=== PATIENT | male | born 1990 | race African-American/Black ===

== ENCOUNTER 2016-12-18 16:46 | Emergency (ER) | payer OTHER ==
[~2016-12-18] VITALS: Wt 167.8 kg
[~2016-12-18 16:46] MED LIST: AMLODIPINE BESY1 TAB PO; BENTYL10 MG PO; CARAFATE1 G1 PO; CARAFATE1 GM/10 ML PO; CETIRIZINE HYDR10 MG PO; CIPRO500 MG PO; DAYPRO600 M1 PO; FLAGYL500 MG PO; HYDROCODONE BIT1 T11 PO; HYDROCODONE BIT1 T20 PO; K-TAB ER8 MEQ PO; MOTRIN800 MG PO; NAPROSYN500 MG PO; NO HOME MEDICATIONS; NORCO 10-325 T1 EACH PO; NORVASC10 MG PO; NORVASC5 MG PO; OMNICEF300 MG PO; PHENERGAN25 MG R; PREDNICOT10 MG PO; PREDNISONE10 MG PO; PRILOSEC20 M1 PO; PROTONIX40 MG PO; REGLAN10 M1 PO; ROBAXIN750 MG PO; VICO75300 PO; ZITHROMAX Z PA250 MG PO; ZOFRAN ODT4 MG SL; ZOFRAN4 MG PO; Zofran4 MG PO
[2016-12-18 17:04] VITALS: BP 114/73
[2016-12-18] MEDS ORDERED: SUMATRIPTAN SUC50 M1 PO (17:05)
[2016-12-18] MEDS ORDERED: IBU800 M1 PO (17:05)
[2016-12-18] MEDS ORDERED: BACLOFEN20 M1 PO (17:06)
[2016-12-18] MEDS ORDERED: CEPHALEXIN500 M1 PO (18:03)
== END 2016-12-18 17:51 | disposition home or self-care (01) ==
LOC: ED 16:46
DX: S61.411A Laceration without foreign body of right hand, initial encounter (principal); Z91.018 Allergy to other foods; Z79.899 Other long term (current) drug therapy; W23.0XXA Caught, crushed, jammed, or pinched between moving objects, initial encounter; Y93.89 Activity, other specified; Y92.9 Unspecified place or not applicable; Y99.9 Unspecified external cause status

== ENCOUNTER 2016-12-28 14:41 | Emergency (ER) | payer OTHER ==
[~2016-12-28] VITALS: Ht 193 cm; Wt 172.4 kg
[~2016-12-28 14:41] MED LIST changes: +BACLOFEN20 M1 PO; +CEPHALEXIN500 M1 PO; +IBU800 M1 PO; +SUMATRIPTAN SUC50 M1 PO
[2016-12-28 14:53] VITALS: BP 155/95
[2016-12-28 15:27] LABS: BASO % 0.1 % (0.0-1.0); EOS % 0.1 % (1.0-4.0); HEMATOCRIT 40.3 % (42.0-52.0); HEMOGLOBIN 13.8 g/dl (14.0-18.0); IG # 0.1 10*3/uL (0.0-0.1); LYMPH # 3.1 10*3/uL (1.3-4.4); LYMPH % 20.7 % (27.0-41.0); MEAN CELL VOLUME 85.4 fl (80.0-94.0); MEAN CORPUSCULAR HGB 29.2 pg (27.0-31.0); MEAN CORPUSCULAR HGB CONC 34.2 g/dl (33.0-37.0); MEAN PLATELET VOLUME 10.2 fl (9.6-12.3); MONO % 7.1 % (3.0-9.0); NEUT # 10.5 10*3/uL (2.3-7.9); NEUT % 71.6 % (47.0-73.0); PLATELET COUNT AUTOMATED 239 10*3/uL (130-400); RED BLOOD COUNT 4.72 10*6/uL (4.50-5.90); WHITE BLOOD COUNT 14.7 10*3/uL (4.8-10.8)
[2016-12-28 15:41] LABS: ALBUMIN 3.6 gm/dl (3.1-4.5); ALKALINE PHOSPHATASE 55 U/L (45-117); BUN 8 mg/dl (7-24); CARBON DIOXIDE 27 mmol/L (21-32); CHLORIDE 107 mmol/L (98-107); EST GLOM FILT AFRICAN AMERICAN > 60 ml/min; GLUCOSE 90 mg/dL (65-99); POTASSIUM 3.5 mmol/L (3.5-5.1); SGOT/AST 9 IU/L (3-35); SGPT/ALT 22 U/L (12-78); SODIUM 143 mmol/L (136-145); TOTAL PROTEIN 7.7 gm/dL (6.4-8.2)
== END 2016-12-28 17:40 | disposition home or self-care (01) ==
LOC: ED 14:41
PROVIDERS: Registered Nurse
DX: Z48.00 Encounter for change or removal of nonsurgical wound dressing (principal); R10.13 Epigastric pain; Z91.018 Allergy to other foods; Z79.899 Other long term (current) drug therapy

== ENCOUNTER → 2017-01-12 | Day surgery (SDC) | payer OTHER ==
[2017-01-11 12:25] LABS: BASO % 0.2 % (0.0-1.0); EOS # 0.3 10*3/uL (0.0-0.4); EOS % 3.4 % (1.0-4.0); HEMATOCRIT 38.9 % (42.0-52.0); HEMOGLOBIN 12.9 g/dl (14.0-18.0); LYMPH # 3.7 10*3/uL (1.3-4.4); LYMPH % 41.4 % (27.0-41.0); MEAN CELL VOLUME 88.4 fl (80.0-94.0); MEAN CORPUSCULAR HGB 29.3 pg (27.0-31.0); MEAN CORPUSCULAR HGB CONC 33.2 g/dl (33.0-37.0); MEAN PLATELET VOLUME 10.2 fl (9.6-12.3); MONO # 0.6 10*3/uL (0.1-1.0); MONO % 7.1 % (3.0-9.0); NEUT # 4.3 10*3/uL (2.3-7.9); NEUT % 47.6 % (47.0-73.0); PLATELET COUNT AUTOMATED 251 10*3/uL (130-400); RED CELL DISTRI WIDTH 13.3 % (0-14.5)
[2017-01-11 12:41] LABS: ALBUMIN 3.7 gm/dl (3.1-4.5); ALKALINE PHOSPHATASE 56 U/L (45-117); BILIRUBIN, DIRECT 0.2 mg/dL (0.0-0.2); BILIRUBIN, TOTAL 0.7 mg/dl (0.2-1.0); BUN 7 mg/dl (7-24); CARBON DIOXIDE 30 mmol/L (21-32); CHLORIDE 107 mmol/L (98-107); EST GLOM FILT AFRICAN AMERICAN > 60 ml/min; GLUCOSE 90 mg/dL (65-99); POTASSIUM 3.5 mmol/L (3.5-5.1); SGOT/AST 11 IU/L (3-35); SGPT/ALT 18 U/L (12-78); SODIUM 142 mmol/L (136-145); TOTAL PROTEIN 7.3 gm/dL (6.4-8.2)
[2017-01-11 12:59] LABS: PROTHROMBIN TIME 10.5 SECONDS (9.0-12.4)
[~2017-01-12] VITALS: Ht 193 cm; Wt 167.8 kg
[~2017-01-12] MED LIST changes: +IMITREX PO
== END | disposition home or self-care (01) ==
LOC: SDC 01-06 09:30
PROVIDERS: Surgery
DX: K82.8 Other specified diseases of gallbladder (principal); Z53.8 Procedure and treatment not carried out for other reasons

== ENCOUNTER 2017-02-27 20:15 | Inpatient (IN) | payer OTHER ==
[~2017-02-27] VITALS: Ht 193 cm; Wt 155.6 kg
--- NOTE | ~2017-02-27 | O ---
[place], [place] OPERATIVE NOTE [facility]: [id number] UNIT #: [id number] ROOM: 512 DOCTOR: SAVANNAH PORTER,PILY BIRTHDATE: [birth year] DOS: 03/01/2017 GASTROENDOSCOPIC REPORT The patient has presented with chief complaint of epigastric abdominal pain, several visits to Emergency Room, and finally was admitted for definitive evaluation. We were concerned if there is any intragastric pathology of concern to define his complaints. PROCEDURE: Today's procedure part of investigation is panendoscopy plus biopsy. PREMEDICATIONS: Versed and Diprivan. SCOPE: Olympus forward-viewing gastroscope Q10 video. REPORT: After putting the patient in the left lateral position and after application of lubricant to the scope, the scope was introduced. Thereafter, under direct visualization, I advanced through the length of the esophagus without difficulty. A very small hiatal hernia approximately 1 cm was noticed. Gastric pouch was entered. Gastritis of mild degree seen. Duodenal bulb, second and third part within normal limits. Antral biopsy obtained for H. pylori. The patient extubated and tolerated the procedure well. IMPRESSION: A 1-cm hiatal hernia, small, gastritis of mild degree. PLAN AND DISCUSSION: I do not believe that his complaints are associated with gastric finding. His gallbladder shows some wall thickening and some pericholecystic fluid. Apparently, this patient has been previously scheduled for gallbladder surgery; however, he did not comply with the procedure and at the present time Dr. Islas of General Surgery is following up on him. Hopefully, he is going to have his cholecystectomy done to see if there is any contribution from his gallbladder pathology. PILY NUÑEZ MD CM:OPRECORD:OPERATIVE NOTE 1211 1658 PILY NUÑEZ MD 03/01/17 1658 interface
--- NOTE | ~2017-02-27 | DS ---
[place], [place] DISCHARGE SUMMARY NAME: RHONDA YARBROUGH [facility] #: [id number] UNIT #: [id number] ROOM: 512 DOCTOR: BRENDA ISRAEL MD BIRTHDATE: [birth year] DOS: 03/03/2017 HOSPITAL COURSE: The patient is 26-year-old. The patient presented to the Emergency Room with complaints of abdominal pain. Please refer to H and P dictated by Dr. Vaughan for further details. After admission the patient had a consultation with Dr. Islas for acute cholecystitis. A cholecystectomy was performed. The patient postoperatively continued to complain of pain. Dr. Sloan was consulted and the patient was ordered an endoscopy, which showed gastritis. Hepatitis panel has been negative. The patient is overall stable. Blood cultures have come back negative. He has been started on a diet and he has tolerated it, so the plan is to discharge him to home today. Follow up with his PCP as an outpatient. DISCHARGE MEDICATIONS: Omeprazole 20 daily, amlodipine 10 daily, Bentyl 10 t.i.d., metoclopramide 10 t.i.d., Zofran 4 mg q. 6 hours p.r.n. for nausea, Imitrex 50 mg daily p.r.n. for headache. BRENDA ISRAEL MD CM:DISCHARG 0915 [id number] BRENDA ISRAEL MD 03/03/17 1127 interface
--- NOTE | ~2017-02-27 | PR ---
[place], [place] PROGRESS NOTE NAME: [id number] UNIT #: [id number] ROOM: 512 DOCTOR: ИВАН PENA MD BIRTHDATE: [birth year] DOS: 03/02/2017 SUBJECTIVE: The patient is starting to feel better. Abdominal pain is improving. He still gets recurrent nausea after he eats, but no vomiting today. The patient says he is taking clear liquid diet. OBJECTIVE: VITAL SIGNS: Blood pressure 126/54, heart rate 65 beats per minute, breathing 20 times per minute, temperature 98.6 degrees Fahrenheit. GENERAL APPEARANCE: The patient is alert and oriented x 3, in no visible distress. HEENT AND NECK: Exam within normal limits. CARDIOVASCULAR SYSTEM: Heart rate is regular in rate and rhythm. S1 and S2 normally audible. LUNGS: Clear to auscultation. ABDOMEN: Soft, nontender. No obvious organomegaly. Bowel sounds are present. EXTREMITIES: Without significant cyanosis or edema. IMPRESSION: 1. Epigastric pains and nausea and vomiting. The patient is status post EGD by Dr. Sloan, showing a 1-cm hiatal hernia, small gastritis of mild degree, no major findings. 2. Musculoskeletal pains in epigastric area. I did start him on gabapentin. 3. Acute cholecystitis. The patient evaluated by Dr. Islas who has recommended outpatient followup with him. 4. Benign essential hypertension with controlled blood pressures. 5. Hypokalemia. The patient given extra potassium. I will repeat his potassium level. Apparently, this was secondary to vomiting. 6. Suspicion of drug withdrawal, possibly opioids for which I have put him on a angiographer because the patient appeared very restless and was complaining of recurrent vomiting and feeling sick. The patient denies any drug abuse other than marijuana, but the patient may have actually undergone opioid withdrawal, but is starting to feel better now. I am unable to confirm this because no drug screens were done at the time of admission in the ER and the patient is giving no history of drug abuse. [place], [place] PROGRESS NOTE NAME: [facility]: [id number] UNIT #: [id number] ROOM: 512 DOCTOR: ИВАН PENA MD BIRTHDATE: [birth year] ИВАН PENA MD CM:MAYCO [phone] ИВАН PENA MD 03/03/17 0159 interface
--- NOTE | ~2017-02-27 | PR ---
[place], [place] PROGRESS NOTE NAME: RHONDA YARBROUGH [facility] #: [id number] UNIT #: [id number] ROOM: 512 DOCTOR: ИВАН PENA MD BIRTHDATE: [birth year] DOS: 03/01/2017 SUBJECTIVE: The patient is still complaining of epigastric and lower sternal pain with tenderness, recurrent nausea. OBJECTIVE: GENERAL APPEARANCE: The patient is alert and oriented x 3, in no visible distress. VITAL SIGNS: Blood pressure 124/61, heart rate of 54 beats per minute, breathing 20 times per minute, temperature 98.8 degrees Fahrenheit. HEENT AND NECK: Exam within normal limits. CARDIOVASCULAR SYSTEM: Heart rate is regular in rate and rhythm. S1 and S2 normally audible. LUNGS: Clear to auscultation. ABDOMEN: Tenderness over the lower sternum and epigastric area. No rigidity, guarding or rebound tenderness. Obesity. No obvious organomegaly. Bowel sounds are present. EXTREMITIES: Without significant cyanosis or edema. IMPRESSION: 1. Persisting epigastric pains; at least in the lower sternal area, they appeared to be musculoskeletal; then he had some epigastric tenderness. The patient going for further evaluation with an EGD by Dr. Sloan later today. I will keep the patient on omeprazole. 2. Musculoskeletal pains. I will start the patient on gabapentin to see if it helps. 3. Acute cholecystitis, being followed by Dr. Islas, who is suggesting an outpatient cholecystectomy. Ultrasound of the gallbladder showed thickening of the gallbladder wall. 4. Benign essential hypertension with controlled blood pressures. 5. Hypokalemia, to be treated with extra potassium supplements. No liver enzyme elevation. ИВАН PENA MD CM:PNTRANS [phone] ИВАН PENA MD 03/02/17 0002 interface
--- NOTE | ~2017-02-27 | WRIGHTHP ---
[place], [place] PATIENT HISTORY AND PHYSICAL EXAM NAME: RHONDA YARBROUGH [facility] #: [id number] UNIT #: [id number] ROOM: 512 DOCTOR: ИВАН PENA MD BIRTHDATE: [birth year] DOS: 02/28/2017 HISTORY OF PRESENT ILLNESS: A 26-year-old gentleman with a past medical history of: 1. Chronic epigastric pain accompanied by nausea, vomiting off and on for about 2 years. 2. Chronic back pains. 3. Hypertension. 4. History of marijuana abuse. 5. History of migraine headaches. 6. Obesity. The patient presented to the Emergency Department with epigastric abdominal pains for 2 days, getting worse along with nausea and vomiting. It was like a burning sensation, which he has had off and on episodes for the last 2 years. The patient had endoscopy at [facility] in 2014, which showed some gastritis only. REVIEW OF SYSTEMS: GASTROINTESTINAL: Just epigastric pains, which has happened off and on for the last 2 years along with nausea and vomiting. LUNGS: No wheezing or shortness of breath. CARDIOVASCULAR: No chest pains or palpitations. FAMILY HISTORY: Noncontributory. SOCIAL HISTORY: Some use of marijuana; otherwise, no alcohol, nicotine or drug abuse. HOME MEDICATIONS: Amlodipine, metoclopramide. ALLERGIES: No known drug allergies. PHYSICAL EXAMINATION: GENERAL: Alert and oriented x3, in no visible distress. HEENT AND NECK: Extraocular movements are intact. Sclerae are anicteric. Oral mucosa is moist and clean. No obvious facial weakness. Neck is supple without any lymphadenopathy. No thyromegaly. No JVD. No carotid arterial bruits. LUNGS: Clear to auscultation. No wheezing. No rhonchi. CARDIOVASCULAR SYSTEM: Heart rate is regular in rate and rhythm. S1 and S2 normally audible. No significant murmur or any other abnormal cardiac sounds. ABDOMEN: Obesity and some epigastric tenderness on palpation. EXTREMITIES: Without significant cyanosis or edema. Warm to touch. CENTRAL NERVOUS SYSTEM: Alert and oriented x3. Cranial nerves II-XII are intact. Speech is normal. The patient is able to move all extremities. Normal muscle strength. Deep tendon reflexes are equal on both sides. Plantars were downgoing. RADIOLOGY AND LABORATORY DATA: The patient's CT scan of the abdomen and pelvis showed slightly thickened gallbladder wall. White cell count 13,500, otherwise normal CBC. Normal serum electrolytes. [place], [place] PATIENT HISTORY AND PHYSICAL EXAM [facility]: [facility] [id number] UNIT #: [id number] ROOM: 512 DOCTOR: BECKY PORTER,ИВАН Enrique BIRTHDATE: [birth year] IMPRESSION AND PLAN: 1. The patient has epigastric pains from uncertain etiology. Has had endoscopy for similar pains in 2014, which only showed mild gastritis. I will consult Dr. Sloan for evaluation. 2. Suspected acute cholecystitis for which surgeon, Dr. Islas, was consulted who has ordered ultrasound of the abdomen. The results are still not available. 3. Benign essential hypertension, which is being treated and blood pressure is being monitored. 4. The patient is on IV ondansetron and Dilaudid for pain control and control of his nausea and vomiting. ИВАН PENA MD CM:HISPHYS:PATIENT HISTORY AND PHYSICAL EXAMINATION 172 14 ИВАН PENA MD 02/28/171914 interface
--- NOTE | ~2017-02-27 | PR ---
[place], [place] PROGRESS NOTE NAME: RHONDA YARBROUGH [facility] #: [id number] UNIT #: [id number] ROOM: 512 DOCTOR: BRENDA ISRAEL MD BIRTHDATE: [birth year] DOS: SUBJECTIVE: The patient is doing fine without any complaints. She has been requesting Dilaudid for abdominal pain. OBJECTIVE: VITAL SIGNS: Graphic trend shows a pressure 130/63, pulse 56, respirations 14, temperature 97.7. LUNGS: Clear. HEART: Regular. ABDOMEN: Soft. EXTREMITIES: Without any edema. LABORATORY DATA: Blood cultures show no bacterial growth. Endoscopy shows acute gastritis. ASSESSMENT AND PLAN: 1. Status post cholecystectomy for acute cholecystitis. 2. Continued abdominal pain with gastritis and hiatal hernia on EGD. The patient is stable and improved, started on a diet and she would be able to go home today. She is advised to follow up with PCP, Dr. Lafleur. BRENDA ISRAEL MD CM:PNTRANS 4 13 BRENDA ISRAEL MD 03/03/172112 interface
--- NOTE | ~2017-02-27 | CON ---
[place], [place] REPORT OF CONSULTATION NAME: RHONDA YARBROUGH [facility] #: [id number] UNIT #: [id number] ROOM: 512 DOCTOR: ALEKSANDAR NUÑEZ MDKELLGABRIELLE BIRTHDATE: [birth year] DOS: HISTORY OF PRESENT ILLNESS: A 26-year-old patient who has presented with chief complaint of persistent epigastric distress, multiple visits to Emergency Room. The patient previously has been scheduled for cholecystectomy. He has not complied with the outpatient followup. However, despite, he is telling me that he has had gastritis and he has had abdominal pain and he had to be admitted. He had a panel of blood work done including lactic acid which was normal. CBC: White blood cell of 13+, H and H of 15 and 45. Comprehensive metabolic panel: BUN and creatinine normal. Liver function test normal. C-reactive protein 0.7. CT scan of the abdomen, no acute pathology except gallbladder thickening and pericholecystic fluid as identified. Sonogram of the gallbladder again reconfirms about above finding. PAST MEDICAL HISTORY: Chronic pain complaints, hypertension. SOCIAL HISTORY: Cannabis user and nonsmoker, otherwise nonalcohol consumer. FAMILY HISTORY: Noncontributory. ALLERGIES: To strawberries. MEDICATIONS: List including Zofran, Imitrex, Reglan, Norvasc, Bentyl reviewed. REVIEW OF SYSTEMS: HEENT: Denies double vision, blurred vision. RESPIRATORY: Denies shortness of breath. CARDIOVASCULAR: Denies chest pain. DIGESTIVE SYSTEM: Epigastric abdominal pain. No hematemesis, no hematochezia. PHYSICAL EXAMINATION: VITAL SIGNS: Stable. HEENT: Head normocephalic, nontraumatic. Mouth and buccal mucosa benign. NECK: Supple, no thyromegaly. CHEST: Symmetric anatomy, equal expansion. No wheeze. No rhonchi. HEART: Normal sinus rhythm. No gallop, no murmur. ABDOMEN: Soft. No hepato or organomegaly. Bowel sounds present. No pulsatile mass. EXTREMITIES: No cyanosis, no pedal edema. NEUROLOGIC: Alert, oriented to time, place and person. INTEGUMENT: Numerous tattoos. IMPRESSION: Epigastric abdominal pain, ruling out intragastric pathology, i.e., hiatal hernia, gastritis, peptic ulcer disease, otherwise pericholecystic fluid with acalculous cholecystitis in differential diagnosis. The patient may benefit from cholecystectomy, otherwise, if his upper endoscopy would be unremarkable. Other adjunctive diagnoses, migraine cephalalgia, marijuana user, hypertension, chronic abdominal pain complaint with no other findings as explained regarding his gallbladder. [place], [place] REPORT OF CONSULTATION NAME: RHONDA YARBROUGH UNIT #: [id number] ROOM: 512 DOCTOR: PILY NUÑEZ MD BIRTHDATE: [birth year] PILY NUÑEZ MD CM:CONSTR:REPORT OF CONSULTATION 1215 03/02/17 0102 interface
[2017-02-27 20:47] VITALS: BP 135/72
[2017-02-27 21:16] LABS: BILIRUBIN NEGATIVE (NEGATIVE); BLOOD NEGATIVE (NEGATIVE); CLARITY CLEAR (CLEAR); COLOR YELLOW (YELLOW); GLUCOSE NEGATIVE (NEGATIVE); KETONE NEGATIVE (NEGATIVE); LEUKO ESTERASE NEGATIVE (NEGATIVE); NITRITE NEGATIVE (NEGATIVE); PH 6.5 (5.0-9.0); PROTEIN NEGATIVE (NEGATIVE); UROBILINOGEN 0.2 E.U./dl (0.2-1.0)
[2017-02-27 21:29] LABS: BACTERIA TRACE; EPITHELIAL CELLS 35-40; RBC 0-2 rbc/hpf (0-2); URINE REFLEX COMMENT NO (NO)
[2017-02-27 22:12] LABS: BASO % 0.2 % (0.0-1.0); EOS % 0.1 % (1.0-4.0); HEMOGLOBIN 15.2 g/dl (14.0-18.0); IG # 0.1 10*3/uL (0.0-0.1); LYMPH # 2.9 10*3/uL (1.3-4.4); LYMPH % 21.6 % (27.0-41.0); MEAN CELL VOLUME 85.4 fl (80.0-94.0); MEAN CORPUSCULAR HGB 29.5 pg (27.0-31.0); MEAN CORPUSCULAR HGB CONC 34.5 g/dl (33.0-37.0); MEAN PLATELET VOLUME 10.5 fl (9.6-12.3); MONO # 0.7 10*3/uL (0.1-1.0); MONO % 5.3 % (3.0-9.0); NEUT # 9.8 10*3/uL (2.3-7.9); NEUT % 72.4 % (47.0-73.0); PLATELET COUNT AUTOMATED 293 10*3/uL (130-400); RED BLOOD COUNT 5.15 10*6/uL (4.50-5.90); WHITE BLOOD COUNT 13.5 10*3/uL (4.8-10.8)
[2017-02-27 22:43] LABS: ALBUMIN 4.1 gm/dl (3.1-4.5); ALKALINE PHOSPHATASE 68 U/L (45-117); BILIRUBIN, TOTAL 1.2 mg/dl (0.2-1.0); BUN 5 mg/dl (7-24); CARBON DIOXIDE 27 mmol/L (21-32); CHLORIDE 107 mmol/L (98-107); EST GLOM FILT AFRICAN AMERICAN > 60 ml/min; GLUCOSE 87 mg/dL (65-99); POTASSIUM 3.8 mmol/L (3.5-5.1); SGOT/AST 21 IU/L (3-35); SGPT/ALT 26 U/L (12-78); SODIUM 143 mmol/L (136-145); TOTAL PROTEIN 8.4 gm/dL (6.4-8.2)
[2017-02-27 22:48] LABS: C-REACTIVE PROTEIN 0.71 MG/DL (0-0.3)
[2017-02-28 01:50] VITALS: BP 133/70
[2017-02-28 02:00] VITALS: BP 148/90
[2017-02-28 08:00] VITALS: BP 154/74
[2017-02-28 16:00] VITALS: BP 154/78
[2017-02-28 20:00] VITALS: BP 133/85
[2017-03-01] VITALS (8 sets, daily range): BP systolic 124–207; BP diastolic 61–116
[2017-03-01 07:32] LABS: BASO % 0.4 % (0.0-1.0); EOS # 0.2 10*3/uL (0.0-0.4); EOS % 1.4 % (1.0-4.0); HEMATOCRIT 37.3 % (42.0-52.0); HEMOGLOBIN 12.6 g/dl (14.0-18.0); LYMPH % 44.5 % (27.0-41.0); MEAN CELL VOLUME 87.1 fl (80.0-94.0); MEAN CORPUSCULAR HGB 29.4 pg (27.0-31.0); MEAN CORPUSCULAR HGB CONC 33.8 g/dl (33.0-37.0); MONO # 0.7 10*3/uL (0.1-1.0); MONO % 6.5 % (3.0-9.0); NEUT # 5.3 10*3/uL (2.3-7.9); NEUT % 46.9 % (47.0-73.0); PLATELET COUNT AUTOMATED 242 10*3/uL (130-400); RED BLOOD COUNT 4.28 10*6/uL (4.50-5.90); RED CELL DISTRI WIDTH 12.9 % (0-14.5); WHITE BLOOD COUNT 11.2 10*3/uL (4.8-10.8)
[2017-03-01 07:42] LABS: ALBUMIN 3.3 gm/dl (3.1-4.5); ALKALINE PHOSPHATASE 48 U/L (45-117); BUN 5 mg/dl (7-24); CARBON DIOXIDE 31 mmol/L (21-32); CHLORIDE 107 mmol/L (98-107); EST GLOM FILT AFRICAN AMERICAN > 60 ml/min; GLUCOSE 86 mg/dL (65-99); POTASSIUM 3.4 mmol/L (3.5-5.1); SGOT/AST 15 IU/L (3-35); SGPT/ALT 19 U/L (12-78); SODIUM 145 mmol/L (136-145); TOTAL PROTEIN 6.7 gm/dL (6.4-8.2)
[2017-03-02] VITALS: BP 136/73
[2017-03-02 04:00] VITALS: BP 148/63
[2017-03-02 08:00] VITALS: BP 137/83
[2017-03-02 12:00] VITALS: BP 140/76
[2017-03-02 16:00] VITALS: BP 126/54
[2017-03-02 20:00] VITALS: BP 153/81
[2017-03-03] VITALS: BP 143/70
[2017-03-03 04:09] VITALS: BP 160/89
[2017-03-03 06:12] LABS: HEPATITIS C VIRUS ANTIBODY <0.1 s/co (0.0-0.9)
[2017-03-03 08:05] VITALS: BP 130/63
[2017-03-03] MEDS ORDERED: PRILOSEC20 M1 PO (09:05)
== END 2017-03-03 10:25 | disposition home or self-care (01) | DRG 445 ==
LOC: ED 20:15 → 5E 02-28 00:48 → EDHOLD 02-28 00:48 → 5E 02-28 01:15
PROVIDERS: Emergency Medicine; Family Medicine; Internal Medicine; Physician Assistant
PROC: 0DB68ZX Excision of Stomach, Via Natural or Artificial Opening Endoscopic, Diagnostic (ICD-10-PCS; principal; 2017-03-01)
DX: K81.0 Acute cholecystitis (principal); Z68.41 Body mass index [BMI] 40.0-44.9, adult; K27.9 Peptic ulcer, site unspecified, unspecified as acute or chronic, without hemorrhage or perforation; E66.01 Morbid (severe) obesity due to excess calories; K29.70 Gastritis, unspecified, without bleeding; K44.9 Diaphragmatic hernia without obstruction or gangrene; I10 Essential (primary) hypertension; G43.909 Migraine, unspecified, not intractable, without status migrainosus; F41.9 Anxiety disorder, unspecified; D72.829 Elevated white blood cell count, unspecified; F12.10 Cannabis abuse, uncomplicated; E87.6 Hypokalemia; M79.1 Myalgia; Z81.1 Family history of alcohol abuse and dependence; Z91.018 Allergy to other foods; Z84.89 Family history of other specified conditions; Z79.1 Long term (current) use of non-steroidal anti-inflammatories (NSAID); Z79.899 Other long term (current) drug therapy

== ENCOUNTER 2017-07-05 17:34 | Emergency (ER) | payer OTHER ==
[~2017-07-05] VITALS: Ht 193 cm; Wt 158.8 kg
[2017-07-05 18:11] LABS: BASO % 0.3 % (0.0-1.0); EOS # 0.3 10*3/uL (0.0-0.4); EOS % 2.2 % (1.0-4.0); HEMATOCRIT 41.5 % (42.0-52.0); LYMPH # 4.5 10*3/uL (1.3-4.4); LYMPH % 37.3 % (27.0-41.0); MEAN CELL VOLUME 87.7 fl (80.0-94.0); MEAN CORPUSCULAR HGB 29.6 pg (27.0-31.0); MEAN CORPUSCULAR HGB CONC 33.7 g/dl (33.0-37.0); MEAN PLATELET VOLUME 9.6 fl (9.6-12.3); MONO # 0.8 10*3/uL (0.1-1.0); MONO % 6.2 % (3.0-9.0); NEUT # 6.5 10*3/uL (2.3-7.9); NEUT % 53.8 % (47.0-73.0); PLATELET COUNT AUTOMATED 285 10*3/uL (130-400); RED BLOOD COUNT 4.73 10*6/uL (4.50-5.90); RED CELL DISTRI WIDTH 13.2 % (0-14.5); WHITE BLOOD COUNT 12.2 10*3/uL (4.8-10.8)
[2017-07-05 18:25] LABS: ALBUMIN 3.9 gm/dl (3.1-4.5); ALKALINE PHOSPHATASE 58 U/L (45-117); BUN 6 mg/dl (7-24); CHLORIDE 109 mmol/L (98-107); CREATININE 0.99 mg/dL (0.70-1.30); LIPASE 177 U/L (73-393); POTASSIUM 3.5 mmol/L (3.5-5.1); SGOT/AST 11 IU/L (3-35); SGPT/ALT 17 U/L (12-78); SODIUM 143 mmol/L (136-145); TOTAL PROTEIN 7.8 gm/dL (6.4-8.2)
[2017-07-05 21:58] VITALS: BP 144/84
[2017-07-05] MEDS ORDERED: REGLAN10 M1 PO (22:58)
== END 2017-07-05 23:34 | disposition home or self-care (01) ==
LOC: ED 17:34
PROVIDERS: Physician Assistant
DX: R10.13 Epigastric pain (principal); Z88.8 Allergy status to other drugs, medicaments and biological substances

== ENCOUNTER 2017-07-06 23:21 | Inpatient (IN) | payer OTHER ==
[~2017-07-06] VITALS: Ht 193 cm; Wt 163.3 kg
--- NOTE | ~2017-07-06 | O ---
[place], [place] OPERATIVE NOTE NAME[id number] UNIT #: [id number] ROOM: 412 DOCTOR: SAVANNAH PORTER,PILY BIRTHDATE: [birth year] DOS: HISTORY OF PRESENT ILLNESS: The patient has presented with epigastric distress, leukocytosis, dyspepsia, persistent. He is dramatically expressing pain. We have been concerned if there is any acute pathology is ongoing. Today's CT scan of the abdomen with contrast has been reviewed. No acute findings. Bilateral gynecomastia, we knew about this. PROCEDURE: Today's procedure part of investigation is panendoscopy plus biopsy and photographic series. PREMEDICATION: Versed and Diprivan. SCOPE: Olympus forward-viewing gastroscope Q10 video. REPORT: After putting the patient in the left lateral position and after application of lubricant to the scope, the scope was introduced. Thereafter, under direct visualization, I advanced through the length of the esophagus without difficulty. Gastric pouch was entered. Ljod-wv-wvbeycmi gastritis and small ulceration, 1.2 cm in length ____ cm in width in the antrum was identified, photographed. Margin of which was biopsied. The patient's duodenal bulb, second and third part within normal limits. GI reflexion of the scope reveals cardia to be benign. Air was suctioned out. The patient was extubated, tolerated procedure well. IMPRESSION: Gastritis, antral ulcer. PLAN AND DISCUSSION: I am going to give him a dose of GI cocktail. We are going to continue with Protonix. We are going to give him full liquid. CBC tomorrow if he tolerates advancing diet and chronic PPI management. Than you very much indeed. PILY NUÑEZ MD CM:OPRECORD:OPERATIVE NOTE 1402 57 PILY NUÑEZ MD 07/07/171658 interface
--- NOTE | ~2017-07-06 | CON ---
[place], [place] REPORT OF CONSULTATION NAME: RHONDA YARBROUGH [facility] #: [id number] UNIT #: [id number] ROOM: 412 DOCTOR: PILY NUÑEZ MD BIRTHDATE: [birth year] DOS: GASTRO-ENDOSCOPIC REPORT HISTORY OF PRESENT ILLNESS: A 27-year-old obese patient who has presented with chief complaint of epigastric distress and leukocytosis of 18,000. The patient has been sent for HIDA scan; however, he complained that he cannot stand the test and the patient was sent back to the floor. Therefore, we will organize EGD to see what the story of the severe epigastric pain is that he is constantly moaning. PAST MEDICAL HISTORY: Associated with gallbladder dysfunction, a few times he has been on schedule, he did not show up, migraine cephalalgia, hypertension. SOCIAL HISTORY: Nonsmoker in the routine fashion, few p.r.n. smokes. Nonalcohol consumer. FAMILY HISTORY: Mother with cirrhosis of the liver. ALLERGIES: To no known medication. Allergic to STRAWBERRIES. PAST SURGICAL HISTORY: Cyst resection from tailbone, perhaps pilonidal cyst history. MEDICATIONS: List has been reviewed. REVIEW OF SYSTEMS: HEENT: Denies double vision, blurred vision. RESPIRATORY: Denies shortness of breath. CARDIOVASCULAR: Denies chest pain. DIGESTIVE SYSTEM: Epigastric pain associated with nausea he says. PHYSICAL EXAMINATION: VITAL SIGNS: Stable, morbidly obese patient. HEENT: Head normocephalic, nontraumatic. Mouth and buccal mucosa benign. NECK: Supple. No thyromegaly. No cervical lymphadenopathy. CHEST: Symmetric anatomy, equal expansion. No wheeze. No rhonchi. HEART: Normal sinus rhythm. No gallop. No murmur. ABDOMEN: Obese, large, soft. No hepato-organomegaly. Bowel sounds present. EXTREMITIES: No cyanosis. No pedal edema. NEUROLOGIC: Alert, oriented to time, place and person. IMPRESSION: Epigastric pain, ruling out peptic ulcer disease involvement with the degree of expression of the pain that he has. His HIDA scan was canceled after he was sent to Radiology Department and he claimed that he could not withstand the pain of epigastric pain. His LFTs normal. Lipase normal. CBC differentials have been looked into. The sonographic study of the liver has diffuse hepatic steatosis, no biliary duct dilation. His lactic acid has been normal. CBC, initial white blood cell 12 and subsequently to 18, elevation. The patient is on antibiotic. Workup in progress. [place], [place] REPORT OF CONSULTATION NAME: RHONDA YARBROUGH UNIT #: [id number] ROOM: [facility] DOCTOR: SAVANNAH PORTER,PILY BIRTHDATE: [birth year] PLAN AND DISCUSSION: We are going to perform EGD today. PILY NUÑEZ MD CM:CONSTR:REPORT OF CONSULTATION 1339 07/07/17 0413 interface
--- NOTE | ~2017-07-06 | WRIGHTHP ---
[place], [place] PATIENT HISTORY AND PHYSICAL EXAM NAME: RHONDA YARBROUGH [facility] #: [id number] UNIT #: [id number] ROOM: 412 DOCTOR: BRENDA ISRAEL MD BIRTHDATE: [birth year] DOS: 07/07/2017 HISTORY OF PRESENT ILLNESS: The patient is 27 years old, known to me from previous admission. The patient comes in with complaints of abdominal pain. He was seen in the Emergency Room the day prior to this admission with the same complaints, he was given pain medications and was sent home. He came back on evening with similar complaints. This time, his white cell count was elevated at 18,000, continued to complain of nausea and emesis. Denied having any chest pains, palpitations, does not have any fever or chills. The patient states he had food before he came in, which was cooked at home, he did not eat anything outside his house, but states that his pain started as soon as he ate. He denies having any fever or chills, any chest pains or palpitations, does not have any diarrhea. PAST MEDICAL HISTORY: Significant for: 1. Gallbladder dysfunction and he was supposed to have gallbladder surgery done as an outpatient, but he never followed up. 2. Benign hypertension. 3. Chronic migraine headaches. 4. Chronic abdominal pain, history of endoscopy, colonoscopy earlier this year, which was unremarkable other than some mild gastritis. The patient is not taking any proton pump inhibitors for that either. MEDICATIONS: He takes amlodipine, Bentyl and Imitrex. SOCIAL HISTORY: He does not drink any alcohol at all, smokes a pack of cigarettes, occasionally smokes pot. He is and has one daughter. FAMILY HISTORY: Significant for father who of alcoholic liver disease and mother who has hypertension. Siblings are healthy. PHYSICAL EXAMINATION: GENERAL: The patient is awake and alert and oriented. VITAL SIGNS: Blood pressure is 126/61, pulse of 60, respirations 18, temperature 98.0. LUNGS: Diminished breath sounds. No wheezes, rales or rhonchi heard. HEART: Regular. ABDOMEN: Obese, soft, nontender. Minimal tenderness noticed in the epigastric region. EXTREMITIES: Without any edema. ASSESSMENT AND PLAN: 1. The patient who presents with abdominal pain, most likely from acute gastritis. The patient is placed on Protonix IV, consultation, Dr. Sloan is obtained. He just had an endoscopy 3 months ago, so we do not plan to repeat it. 2. Biliary dyskinesia. We will do a HIDA scan to see whether he would require a cholecystectomy. 3. Elevated white cell count, possibly from food poisoning. Repeat CBC will be ordered tomorrow and for right now, conservator regimen with IV fluids will be [place], [place] PATIENT HISTORY AND PHYSICAL EXAM [facility]: [id number] #: [id number] ROOM: [facility] DOCTOR: BRENDA ISRAEL MD BIRTHDATE: [birth year] ordered and no diet is ordered yet. BRENDA ISRAEL MD CM:HISPHYS:PATIENT HISTORY AND PHYSICAL EXAMINATION 1149 1217 BRENDA ISRAEL MD 07/07/17 1216 interface
[2017-07-06 23:25] VITALS: BP 171/120
[2017-07-07] VITALS (10 sets, daily range): BP systolic 126–205; BP diastolic 61–114
[2017-07-07 00:36] LABS: HEMATOCRIT 39.2 % (42.0-52.0); HEMOGLOBIN 13.9 g/dl (14.0-18.0); MEAN CELL VOLUME 85.6 fl (80.0-94.0); MEAN CORPUSCULAR HGB 30.3 pg (27.0-31.0); MEAN CORPUSCULAR HGB CONC 35.5 g/dl (33.0-37.0); MEAN PLATELET VOLUME 10.2 fl (9.6-12.3); PLATELET COUNT AUTOMATED 249 10*3/uL (130-400); RED BLOOD COUNT 4.58 10*6/uL (4.50-5.90); RED CELL DISTRI WIDTH 13.2 % (0-14.5); WHITE BLOOD COUNT 18.1 10*3/uL (4.8-10.8)
[2017-07-07 00:46] LABS: ALBUMIN 3.9 gm/dl (3.1-4.5); ALKALINE PHOSPHATASE 54 U/L (45-117); BUN 7 mg/dl (7-24); CHLORIDE 111 mmol/L (98-107); CREATININE 0.93 mg/dL (0.70-1.30); LIPASE 148 U/L (73-393); POTASSIUM 4.2 mmol/L (3.5-5.1); SGOT/AST 21 IU/L (3-35); SGPT/ALT 20 U/L (12-78); SODIUM 145 mmol/L (136-145); TOTAL PROTEIN 7.6 gm/dL (6.4-8.2)
[2017-07-07 00:57] LABS: TOTAL CELLS COUNTED 100 #CELLS
[2017-07-07 00:58] LABS: PLATELET SUFFICIENCY NORMAL (NORMAL)
--- NOTE | 2017-07-07 01:31 | NUR ---
PT RATES PAIN 10 OUT OF 10 UNDERNEATH STERNUM ACHING PAIN PRIOR TO NARCOTIC ADM
--- NOTE | 2017-07-07 01:32 | NUR ---
PT RATES PAIN 6 OUT OF 10 AFTER NARCOTIC ADM.
--- NOTE | 2017-07-07 02:05 | NUR ---
Time: 204 A 27 year old MALE admitted to 4E under services of DR. JHONATAN PORTER,BRENDA. Pt. arrived via stretcher from ER. Chief complaint: EPIGASTRIC ABDOMINAL PAIN. CHARISSA MEDINA
--- NOTE | 2017-07-07 02:06 | NUR ---
REPORT GIVEN TO CHARISSA BALTAZAR
--- NOTE | 2017-07-07 05:50 | NUR ---
Called and notified regarding consult. He said "thank you." No new orders were given at this time.
--- NOTE | 2017-07-07 08:01 | NUR ---
DR. ISRAEL IN TO SEE PT AT THIS TIME.
--- NOTE | 2017-07-07 08:13 | NUR ---
PT TO HAVE HIDASCAN AT 1100. NPO AT THIS TIME. PT AWARE.
--- NOTE | 2017-07-07 08:30 | NUR ---
Wire Brush Maker in to talk to patient. Patient states lives at HOME with HIS . There are 10 steps in the home. Physician: DR OLMOS [facility] health services: NONE Patient's level of ADLs: INDEPENDENT Patient has working utilities: YES DME: NONE Follow-up physician's appointment after d/c: PREFERS TO MAKE HIS OWN APPT Does patient want to access PORTAL?: Discharge plan HOME. MASOOD CARLISLE
--- NOTE | 2017-07-07 09:55 | NUR ---
SPOKE WITH DR. NUÑEZ FOR CONSULT DUE TO ABDOMINAL PAIN. STATES THAT PT WILL HAVE EGD THIS ADMISSION.
--- NOTE | 2017-07-07 11:30 | NUR ---
Pt off floor for HIDA scan.
--- NOTE | 2017-07-07 13:12 | NUR ---
Pt returns from HIDA scan and could not complete procedure. Dr perry notified of patient rating pain 10/10, new orders received.
--- NOTE | 2017-07-07 13:20 | NUR ---
PT REQUESTING MEDICATION FOR ABDOMINAL PAIN. DR. ISRAEL NOTIFIED AND ORDERS ONE TIME DOSE OF IV TORADOL 60 MG.
--- NOTE | 2017-07-07 13:25 | NUR ---
PT OFFERED IV TORADOL FOR ABDOMINAL PAIN. PT REFUSES MEDICATION AT THIS TIME AND STATES THAT ONLY IV DILAUDID WORKS FOR HIM.
--- NOTE | 2017-07-07 13:35 | NUR ---
DR. NUÑEZ IN ROOM TO SEE PT. STATES TO BRING HIM TO SURGERY FOR EGD. PT AGREES AND TRANSPORTED VIA BED TO SURGERY UNIT.
--- NOTE | 2017-07-07 14:15 | NUR ---
PT RETURNS TO FLOOR, YELLING OUT IN PAIN, REQUESTING IV DILAUDID FOR ABDOMINAL PAIN. PT STATES THAT NO OTHER PAIN MEDICATION WORKS FOR HIM. OFFERED GI COCKTAIL AND IV TORADOL PER DR ORDERS. PT REFUSES ORDERED MEDICATIONS AT THIS TIME.
--- NOTE | 2017-07-07 14:23 | NUR ---
[facility] CALLED TO REPORT RESULTS OF HIDASCAN ON PT. DR. ALBRECHT INFORMED OF RESULTS.
--- NOTE | 2017-07-07 15:03 | NUR ---
SPOKE TO DR NUÑEZ AT PTS REQUEST REGARDING "I JUST NEED DILAUDID" PT STATES HE IS "IMMUNE" TO GI COCKTAIL & REFUSES OTHER MEDICATIONS THAT ARE AVAILABLE. PER DR NUÑEZ, NO NEED FOR ANY OTHER PAIN MEDICATIONS. CALLED DR ISRAEL AT PTS REQUEST FOR DILAUDID & DR ISRAEL DECLINED GIVING ORDERS FOR DILAUDID. PTS GIRLFRIEND IN ROOM & IS VERBALLY ACCUSING STAFF OF NOT CARING FOR PT. ATTEMPTS TO REASSURE & MAKE PT & HIS GIRLFRIEND UNDERSTAND RATIONAL FOR MEDICATIONS THAT ARE AVAILALE ARE UNSUCCESSFUL. OFFERED TO GET EXPANDED DUTY DENTAL ASSISTANT TO SPEAK WITH BOTH PT & HIS GIRLFRIEND, PT STATES HE WOULD LIKE TO DO THAT.
--- NOTE | 2017-07-07 15:15 | NUR ---
PTS MOTHER CALLED NURSING STATION TO INQUIRE WHY PT IS NOT BE CARED FOR. INFORMED HER THAT TWO PHYSICIANS HAVE BEEN CALLED AT HIS REQUEST FOR IV DILAUDID & FACT THAT PT IS REFUSING MEDICATIONS THAT ARE AVAILABLE. SHE VOICES UNDERSTANDING & STATES THAT SHE WILL CALL HER SON & TRY TO CALM HIM DOWN.
--- NOTE | 2017-07-07 15:31 | NUR ---
SHIFT DIRECTOR, REBA VALDEZ UP TO SEE PT. SPOKE WITH BOTH PT & HIS GIRLFRIEND. ATTEMPTED TO REASSURE WITHOUT SUCCESS. AT GIRLFRIEND & SHIFT DIRECTORS REQUEST, CALLED DR ISRAEL AGAIN TO SEE IF SHE WOULD SPEAK TO PT & HIS GIRLFIEND, DR SALCEDO STATING THAT SHE SAW PT THIS MORNING & THERE HAS BEEN NO CHANGES.
--- NOTE | 2017-07-07 15:45 | NUR ---
IN TO SEE PT, BLOOD PRESSURE RECHECKED MANUALLY. BP: 160/88 AT THIS TIME. WILL CONTINUE TO MONITOR. CALL LIGHT IN REACH.
--- NOTE | 2017-07-07 16:35 | NUR ---
PATIENT REFUSING TO SIGN DISCHARGE PAPERS AND PULLED OUT IV HIMSELF STATING HE DIDN'T WANT ANY HELP. GIRLFRIEND AND PATIENT WALKED OUT OF ROOM. RN ASKED PATIENT IF HE WOULD LIKE WHEELCHAIR, HE DECLINED AND WALKED OUT.
== END 2017-07-07 16:35 | disposition home or self-care (01) | DRG 392 ==
LOC: ED 23:21 → 4E 07-07 01:13 → EDHOLD 07-07 01:13 → 4E 07-07 01:36
PROVIDERS: Physician Assistant; ADMIT Internal Medicine
PROC: 0DB78ZX Excision of Stomach, Pylorus, Via Natural or Artificial Opening Endoscopic, Diagnostic (ICD-10-PCS; principal; 2017-07-07)
DX: K29.70 Gastritis, unspecified, without bleeding (principal); K76.0 Fatty (change of) liver, not elsewhere classified; Z68.41 Body mass index [BMI] 40.0-44.9, adult; K25.9 Gastric ulcer, unspecified as acute or chronic, without hemorrhage or perforation; I10 Essential (primary) hypertension; F41.9 Anxiety disorder, unspecified; G89.29 Other chronic pain; N62 Hypertrophy of breast; M54.9 Dorsalgia, unspecified; D72.829 Elevated white blood cell count, unspecified; E66.9 Obesity, unspecified; K82.8 Other specified diseases of gallbladder; G43.909 Migraine, unspecified, not intractable, without status migrainosus; Z91.018 Allergy to other foods; Z81.1 Family history of alcohol abuse and dependence; Z84.89 Family history of other specified conditions; Z82.49 Family history of ischemic heart disease and other diseases of the circulatory system; Z79.899 Other long term (current) drug therapy

== ENCOUNTER 2017-07-10 07:26 | Emergency (ER) | payer OTHER ==
[~2017-07-10] VITALS: Ht 193 cm; Wt 158.8 kg
[2017-07-10 07:57] LABS: BASO # 0.1 10*3/uL (0.0-0.1); BASO % 0.3 % (0.0-1.0); EOS # 0.1 10*3/uL (0.0-0.4); EOS % 0.3 % (1.0-4.0); HEMATOCRIT 44.8 % (42.0-52.0); HEMOGLOBIN 15.3 g/dl (14.0-18.0); LYMPH # 2.4 10*3/uL (1.3-4.4); LYMPH % 15.9 % (27.0-41.0); MEAN CELL VOLUME 85.8 fl (80.0-94.0); MEAN CORPUSCULAR HGB 29.3 pg (27.0-31.0); MEAN CORPUSCULAR HGB CONC 34.2 g/dl (33.0-37.0); MEAN PLATELET VOLUME 9.5 fl (9.6-12.3); MONO # 0.8 10*3/uL (0.1-1.0); MONO % 5.5 % (3.0-9.0); NEUT # 11.9 10*3/uL (2.3-7.9); NEUT % 77.7 % (47.0-73.0); PLATELET COUNT AUTOMATED 295 10*3/uL (130-400); RED BLOOD COUNT 5.22 10*6/uL (4.50-5.90); RED CELL DISTRI WIDTH 13.1 % (0-14.5); WHITE BLOOD COUNT 15.4 10*3/uL (4.8-10.8)
[2017-07-10 08:11] LABS: ALKALINE PHOSPHATASE 54 U/L (45-117); BUN 6 mg/dl (7-24); CHLORIDE 105 mmol/L (98-107); CREATININE 0.93 mg/dL (0.70-1.30); LIPASE 608 U/L (73-393); POTASSIUM 3.4 mmol/L (3.5-5.1); SGOT/AST 15 IU/L (3-35); SGPT/ALT 23 U/L (12-78); SODIUM 140 mmol/L (136-145)
[2017-07-10 12:31] LABS: BILIRUBIN NEGATIVE (NEGATIVE); BLOOD NEGATIVE (NEGATIVE); CLARITY SL CLOUDY (CLEAR); COLOR YELLOW (YELLOW); GLUCOSE NEGATIVE (NEGATIVE); KETONE NEGATIVE (NEGATIVE); LEUKO ESTERASE NEGATIVE (NEGATIVE); NITRITE NEGATIVE (NEGATIVE); UROBILINOGEN 0.2 E.U./dl (0.2-1.0)
[2017-07-10 12:47] LABS: MUCOUS 2+; WBC 0-2 wbc/hpf (0-5)
[2017-07-10 13:30] VITALS: BP 168/86
== END 2017-07-10 13:30 | disposition short-term general hospital (02) ==
LOC: ED 07:26
PROVIDERS: Emergency Medicine
DX: K85.90 Acute pancreatitis without necrosis or infection, unspecified (principal); I10 Essential (primary) hypertension; G43.909 Migraine, unspecified, not intractable, without status migrainosus; F17.210 Nicotine dependence, cigarettes, uncomplicated; Z91.018 Allergy to other foods; Z79.899 Other long term (current) drug therapy

== ENCOUNTER 2018-06-18 09:23 | Inpatient (IN) | payer OTHER ==
[2018-06-18 09:24] VITALS: BP 166/90
[2018-06-18 10:07] LABS: BASO # 0.1 10*3/uL (0.0-0.1); BASO % 0.3 % (0.0-1.0); EOS # 0.1 10*3/uL (0.0-0.4); EOS % 0.6 % (1.0-4.0); HEMATOCRIT 41.3 % (42.0-52.0); HEMOGLOBIN 13.8 g/dl (14.0-18.0); LYMPH # 3.3 10*3/uL (1.3-4.4); LYMPH % 18.6 % (27.0-41.0); MEAN CELL VOLUME 87.9 fl (80.0-94.0); MEAN CORPUSCULAR HGB 29.4 pg (27.0-31.0); MEAN CORPUSCULAR HGB CONC 33.4 g/dl (33.0-37.0); MEAN PLATELET VOLUME 10.1 fl (9.6-12.3); MONO # 0.9 10*3/uL (0.1-1.0); MONO % 5.2 % (3.0-9.0); NEUT # 13.2 10*3/uL (2.3-7.9); NEUT % 74.9 % (47.0-73.0); PLATELET COUNT AUTOMATED 278 10*3/uL (130-400); RED CELL DISTRI WIDTH 12.9 % (0-14.5); WHITE BLOOD COUNT 17.6 10*3/uL (4.8-10.8)
[2018-06-18 10:33] LABS: ALBUMIN 4.1 gm/dl (3.1-4.5); ALKALINE PHOSPHATASE 54 U/L (45-117); BUN 8 mg/dl (7-24); CHLORIDE 107 mmol/L (98-107); CREATININE 0.97 mg/dL (0.70-1.30); LIPASE 92 U/L (73-393); POTASSIUM 3.6 mmol/L (3.5-5.1); SGOT/AST 19 IU/L (3-35); SGPT/ALT 29 U/L (12-78); SODIUM 142 mmol/L (136-145); TOTAL PROTEIN 8.2 gm/dL (6.4-8.2)
[2018-06-18 11:44] LABS: BILIRUBIN NEGATIVE (NEGATIVE); BLOOD NEGATIVE (NEGATIVE); CLARITY SL CLOUDY (CLEAR); COLOR YELLOW (YELLOW); GLUCOSE NEGATIVE (NEGATIVE); KETONE 3+ (NEGATIVE); LEUKO ESTERASE NEGATIVE (NEGATIVE); NITRITE NEGATIVE (NEGATIVE); SPECIFIC GRAVITY 1.025 (1.005-1.030); UROBILINOGEN 0.2 E.U./dl (0.2-1.0)
[2018-06-18 11:49] LABS: URINE AMPHETAMINES < 1000 (1000ng/ml); URINE BARBITURATES < 200 (200ng/ml); URINE BENZODIAZEPINES < 200 (200ng/ml); URINE CANNABINOIDS (THC) > 50 (50ng/ml); URINE COCAINE > 300 (300ng/ml); URINE METHADONE < 300 (300ng/ml); URINE OPIATES < 300 (300ng/ml)
[2018-06-18 11:54] LABS: URINE PHENCYCLIDINE < 25 (25ng/ml)
[2018-06-18 12:04] LABS: BACTERIA 2+; MUCOUS 2+
[2018-06-18] MEDS ORDERED: PEPCID20 MG PO (12:17)
[2018-06-18 12:53] VITALS: BP 153/88
== END 2018-06-18 14:21 | disposition left against medical advice (07) | DRG 392 ==
LOC: ED 09:23 → EDHOLD 12:40 → 5E 12:46
PROVIDERS: Emergency Medicine
DX: R10.9 Unspecified abdominal pain (principal); G89.29 Other chronic pain; M54.9 Dorsalgia, unspecified; E86.0 Dehydration; R11.10 Vomiting, unspecified; I10 Essential (primary) hypertension; G43.909 Migraine, unspecified, not intractable, without status migrainosus; Z81.1 Family history of alcohol abuse and dependence; Z83.79 Family history of other diseases of the digestive system; Z81.2 Family history of tobacco abuse and dependence

== ENCOUNTER 2018-06-20 16:13 | Emergency (ER) | payer OTHER ==
[~2018-06-20] VITALS: Ht 193 cm; Wt 158.8 kg
[~2018-06-20 16:13] MED LIST changes: +PEPCID20 MG PO
[2018-06-20 16:17] VITALS: BP 162/100
[2018-06-20 16:39] LABS: BASO % 0.2 % (0.0-1.0); EOS % 0.3 % (1.0-4.0); HEMATOCRIT 47.3 % (42.0-52.0); HEMOGLOBIN 16.2 g/dl (14.0-18.0); LYMPH # 2.3 10*3/uL (1.3-4.4); LYMPH % 18.3 % (27.0-41.0); MEAN CELL VOLUME 85.4 fl (80.0-94.0); MEAN CORPUSCULAR HGB 29.2 pg (27.0-31.0); MEAN CORPUSCULAR HGB CONC 34.2 g/dl (33.0-37.0); MEAN PLATELET VOLUME 10.2 fl (9.6-12.3); MONO # 0.9 10*3/uL (0.1-1.0); MONO % 6.9 % (3.0-9.0); NEUT # 9.2 10*3/uL (2.3-7.9); NEUT % 74.1 % (47.0-73.0); PLATELET COUNT AUTOMATED 272 10*3/uL (130-400); RED BLOOD COUNT 5.54 10*6/uL (4.50-5.90); RED CELL DISTRI WIDTH 12.8 % (0-14.5); WHITE BLOOD COUNT 12.4 10*3/uL (4.8-10.8)
[2018-06-20 16:51] LABS: ACT PARTIAL THROMBO TIME 21.8 SECONDS (20.8-31.5); INTERNATIONAL NORM RATIO 1.1 (2.0-3.5)
[2018-06-20 16:56] LABS: ALBUMIN 4.4 gm/dl (3.1-4.5); ALKALINE PHOSPHATASE 64 U/L (45-117); BUN 11 mg/dl (7-24); CHLORIDE 102 mmol/L (98-107); LIPASE 151 U/L (73-393); POTASSIUM 3.3 mmol/L (3.5-5.1); SGOT/AST 23 IU/L (3-35); SGPT/ALT 38 U/L (12-78); SODIUM 137 mmol/L (136-145); TOTAL PROTEIN 8.5 gm/dL (6.4-8.2)
[2018-06-20 16:59] LABS: ETHYL ALCOHOL < 3.0 mg/dl (<3)
== END 2018-06-20 17:06 | disposition left against medical advice (07) ==
LOC: ED 16:13
PROVIDERS: Emergency Medicine
DX: R11.2 Nausea with vomiting, unspecified (principal); R10.13 Epigastric pain; G89.29 Other chronic pain; I10 Essential (primary) hypertension; G43.909 Migraine, unspecified, not intractable, without status migrainosus; F12.10 Cannabis abuse, uncomplicated; E66.9 Obesity, unspecified; Z79.899 Other long term (current) drug therapy

== ENCOUNTER 2020-11-09 17:39 | Inpatient (IN) | payer OTHER ==
[~2020-11-09] VITALS: Ht 193 cm; Wt 175.7 kg
[2020-11-09 17:46] VITALS: BP 150/93
[2020-11-09] MEDS ORDERED: PEPCID20 MG PO (17:52)
[2020-11-09] MEDS ORDERED: LISINOPRIL10 M1 PO (17:52)
[2020-11-09 20:40] LABS: BASO % 0.2 % (0.0-1.0); EOS % 0.2 % (1.0-4.0); HEMATOCRIT 41.9 % (42.0-52.0); LYMPH # 1.1 10*3/uL (1.3-4.4); LYMPH % 8.9 % (27.0-41.0); MEAN CELL VOLUME 88.8 fl (80.0-94.0); MEAN CORPUSCULAR HGB 28.8 pg (27.0-31.0); MEAN CORPUSCULAR HGB CONC 32.5 g/dl (33.0-37.0); MEAN PLATELET VOLUME 9.9 fl (9.6-12.3); MONO # 0.3 10*3/uL (0.1-1.0); MONO % 2.5 % (3.0-9.0); NEUT # 10.6 10*3/uL (2.3-7.9); NEUT % 87.9 % (47.0-73.0); PLATELET COUNT AUTOMATED 296 10*3/uL (130-400); RED BLOOD COUNT 4.72 10*6/uL (4.50-5.90); RED CELL DISTRI WIDTH 12.8 % (0-14.5); WHITE BLOOD COUNT 12.1 10*3/uL (4.8-10.8)
[2020-11-09 20:51] LABS: BILIRUBIN Negative (Negative); BLOOD Negative (Negative); CLARITY Clear (Clear); COLOR Yellow (Yellow); GLUCOSE Negative (Negative); KETONE Trace (Negative); LEUKO ESTERASE Negative (Negative); NITRITE Negative (Negative); PH 6.5 (4.5-8.0); UROBILINOGEN 0.2 E.U./dl (0.0-1.0)
[2020-11-09 20:56] LABS: ALKALINE PHOSPHATASE 54 U/L (45-117); BUN 10 mg/dl (7-24); CHLORIDE 109 mmol/L (98-107); CREATININE 0.83 mg/dL (0.70-1.30); LIPASE 57 U/L (73-393); POTASSIUM 3.6 mmol/L (3.5-5.1); SGOT/AST 16 IU/L (3-35); SGPT/ALT 29 U/L (12-78); SODIUM 139 mmol/L (136-145); TOTAL PROTEIN 8.3 gm/dL (6.4-8.2)
[2020-11-09 20:59] LABS: BACTERIA TRACE; WBC 0-2 wbc/hpf (0-5)
[2020-11-09] MEDS ORDERED: PREDNISONE20 M1 PO ×2 (23:10)
[2020-11-09] MEDS ORDERED: ROBAXIN-750750 MG PO ×2 (23:10)
[2020-11-10 03:01] VITALS: BP 132/84
[2020-11-10 04:13] LABS: URINE AMPHETAMINES < 1000 (1000ng/ml); URINE BARBITURATES < 200 (200ng/ml); URINE BENZODIAZEPINES < 200 (200ng/ml); URINE CANNABINOIDS (THC) > 50 (50ng/ml); URINE COCAINE < 300 (300ng/ml); URINE METHADONE < 300 (300ng/ml); URINE OPIATES < 300 (300ng/ml)
[2020-11-10 04:15] LABS: URINE PHENCYCLIDINE < 25 (25ng/ml)
[2020-11-10 08:43] VITALS: BP 173/86
[2020-11-10 11:31] VITALS: BP 165/76
[2020-11-10 15:53] VITALS: BP 157/67
[2020-11-10 16:00] VITALS: BP 156/100
[2020-11-10] MEDS ORDERED: PROTONIX40 MG PO (16:40)
[2020-11-10] MEDS ORDERED: IMITREX25 M1 PO (16:40)
[2020-11-10] MEDS ORDERED: SEROQUEL100 MG PO (16:40)
[2020-11-10 20:00] VITALS: BP 166/84
[2020-11-10] MEDS ORDERED: CYCLOBENZAPRINE10 MG PO (20:17)
[2020-11-11] VITALS: BP 152/81
[2020-11-11 08:00] VITALS: BP 142/64
[2020-11-11 12:00] VITALS: BP 156/87
[2020-11-11 16:00] VITALS: BP 151/80
[2020-11-11 20:00] VITALS: BP 157/109
[2020-11-12] VITALS: BP 156/97
[2020-11-12 04:00] VITALS: BP 143/85
[2020-11-12 10:00] VITALS: BP 132/80
[2020-11-12 12:00] VITALS: BP 130/74
[2020-11-12 16:00] VITALS: BP 150/86; BP 152/92
[2020-11-12 20:00] VITALS: BP 144/99
[2020-11-13] VITALS: BP 173/97
[2020-11-13 08:00] VITALS: BP 158/93
[2020-11-13 12:00] VITALS: BP 156/86
[2020-11-13 16:00] VITALS: BP 150/78
[2020-11-13 20:00] VITALS: BP 167/100
[2020-11-14] VITALS: BP 153/96
[2020-11-14 08:00] VITALS: BP 147/97
[2020-11-14 12:00] VITALS: BP 145/88
[2020-11-14 16:00] VITALS: BP 150/92
[2020-11-14 20:00] VITALS: BP 154/97
[2020-11-15] VITALS: BP 183/94
[2020-11-15 08:00] VITALS: BP 140/86
[2020-11-15] MEDS ORDERED: NEURONTIN300 MG PO (08:15)
[2020-11-15] MEDS ORDERED: PREDNISONE10 MG PO (08:15)
== END 2020-11-15 12:16 | disposition home or self-care (01) | DRG 347 ==
LOC: ED 17:39 → 5E 11-10 00:06 → EDHOLD 11-10 00:06 → 5E 11-10 16:23
PROVIDERS: Emergency Medicine; Physician Assistant; ADMIT Internal Medicine; ATTEND Internal Medicine
DX: M48.061 Spinal stenosis, lumbar region without neurogenic claudication (principal); F41.1 Generalized anxiety disorder; E66.01 Morbid (severe) obesity due to excess calories; M54.16 Radiculopathy, lumbar region; I10 Essential (primary) hypertension; M51.26 Other intervertebral disc displacement, lumbar region; M47.896 Other spondylosis, lumbar region; K21.00 Gastro-esophageal reflux disease with esophagitis, without bleeding; S39.012A Strain of muscle, fascia and tendon of lower back, initial encounter; X58.XXXA Exposure to other specified factors, initial encounter; Y93.89 Activity, other specified; Y92.89 Other specified places as the place of occurrence of the external cause; Z68.42 Body mass index [BMI] 45.0-49.9, adult; Y99.8 Other external cause status

== ENCOUNTER 2022-01-26 08:40 | Emergency (ER) | payer OTHER ==
[~2022-01-26] VITALS: Wt 127.0 kg
[~2022-01-26 08:40] MED LIST changes: +CYCLOBENZAPRINE10 MG PO; +IMITREX25 M1 PO; +LISINOPRIL10 M1 PO; +NEURONTIN300 MG PO; +PREDNISONE20 M1 PO; +ROBAXIN-750750 MG PO; +SEROQUEL100 MG PO
[2022-01-26 08:47] VITALS: BP 133/58
[2022-01-26 09:35] LABS: BASO % 0.3 % (0.0-1.0); EOS # 0.2 10*3/uL (0.0-0.4); EOS % 3.5 % (1.0-4.0); HEMATOCRIT 40.6 % (42.0-52.0); LYMPH % 16.5 % (27.0-41.0); MEAN CELL VOLUME 86.6 fl (80.0-94.0); MEAN CORPUSCULAR HGB CONC 33.5 g/dl (33.0-37.0); MEAN PLATELET VOLUME 9.6 fl (9.6-12.3); MONO # 0.7 10*3/uL (0.1-1.0); MONO % 10.4 % (3.0-9.0); NEUT # 4.3 10*3/uL (2.3-7.9); PLATELET COUNT AUTOMATED 251 10*3/uL (130-400); RED BLOOD COUNT 4.69 10*6/uL (4.50-5.90); RED CELL DISTRI WIDTH 12.6 % (0-14.5); WHITE BLOOD COUNT 6.2 10*3/uL (4.8-10.8)
[2022-01-26 09:51] LABS: ALKALINE PHOSPHATASE 53 U/L (45-117); BUN 9 mg/dl (7-24); CHLORIDE 109 mmol/L (98-107); CREATININE 0.76 mg/dL (0.70-1.30); LIPASE 56 U/L (73-393); POTASSIUM 3.5 mmol/L (3.5-5.1); SGOT/AST 14 IU/L (3-35); SGPT/ALT 18 U/L (12-78); SODIUM 140 mmol/L (136-145); TOTAL PROTEIN 7.6 gm/dL (6.4-8.2)
[2022-01-26] MEDS ORDERED: ZOFRAN4 MG PO (11:48)
== END 2022-01-26 12:50 | disposition home or self-care (01) ==
LOC: ED 08:40
PROVIDERS: Emergency Medicine
DX: K52.9 Noninfective gastroenteritis and colitis, unspecified (principal); K21.9 Gastro-esophageal reflux disease without esophagitis; Z91.018 Allergy to other foods; Z79.899 Other long term (current) drug therapy

== ENCOUNTER 2022-06-27 21:58 | Emergency (ER) | payer OTHER ==
[~2022-06-27 21:58] MED LIST changes: +DICYCLOMINE HYD20 MG PO; +DOCUSATE SOD100 MG PO; +LISINOPRIL40 MG PO; +REGLAN5 MG PO
[2022-06-28 01:35] LABS: HEMATOCRIT 41.3 % (42.0-52.0); MEAN CELL VOLUME 85.9 fl (80.0-94.0); MEAN CORPUSCULAR HGB 29.3 pg (27.0-31.0); MEAN CORPUSCULAR HGB CONC 34.1 g/dl (33.0-37.0); MEAN PLATELET VOLUME 9.6 fl (9.6-12.3); PLATELET COUNT AUTOMATED 218 10*3/uL (130-400); RED BLOOD COUNT 4.81 10*6/uL (4.50-5.90); RED CELL DISTRI WIDTH 12.7 % (0-14.5); WHITE BLOOD COUNT 5.6 10*3/uL (4.8-10.8)
[2022-06-28 01:36] LABS: MANUAL DIFF REFLEX YES
[2022-06-28 02:01] LABS: ATYPICAL LYMPHS 2 % (0-0); PLATELET SUFFICIENCY NORMAL (NORMAL); TOTAL CELLS COUNTED 100 #CELLS
[2022-06-28 02:24] LABS: ALKALINE PHOSPHATASE 64 U/L (45-117); BUN 8 mg/dl (7-24); CHLORIDE 109 mmol/L (98-107); CREATININE 0.86 mg/dL (0.70-1.30); LIPASE 58 U/L (73-393); POTASSIUM 3.7 mmol/L (3.5-5.1); SGOT/AST 29 IU/L (3-35); SGPT/ALT 29 U/L (12-78); SODIUM 140 mmol/L (136-145); TOTAL PROTEIN 7.7 gm/dL (6.4-8.2)
[2022-06-28 07:10] VITALS: BP 172/90
[2022-06-28] MEDS ORDERED: DICYCLOMINE HYD20 MG PO (08:00)
== END 2022-06-28 08:40 | disposition home or self-care (01) ==
LOC: ED 21:58
PROVIDERS: Emergency Medicine
DX: U07.1 COVID-19 (principal); K58.9 Irritable bowel syndrome, unspecified; R11.10 Vomiting, unspecified; G43.909 Migraine, unspecified, not intractable, without status migrainosus; Z79.899 Other long term (current) drug therapy

== ENCOUNTER → 2025-03-11 | Outpatient (CLI) | payer OTHER ==
[2025-03-11 18:15] LABS: HEMATOCRIT 40.5 % (42.0-52.0); MEAN CELL VOLUME 86.7 fl (80.0-94.0); MEAN CORPUSCULAR HGB 28.3 pg (27.0-31.0); MEAN CORPUSCULAR HGB CONC 32.6 g/dl (33.0-37.0); RED BLOOD COUNT 4.67 10*6/uL (4.50-5.90); WHITE BLOOD COUNT 7.3 10*3/uL (4.8-10.8)
[2025-03-11 18:37] LABS: ALKALINE PHOSPHATASE 60 U/L (46-116); BUN 7 mg/dl (9-23); CHLORIDE 103 mmol/L (98-107); CHOLESTEROL 137 mg/dL (<200); LDL CHOLESTEROL 76 mg/dL (9-159); POTASSIUM 4.1 mmol/L (3.4-5.1); SGPT/ALT 49 U/L (5-49); TOTAL PROTEIN 7.6 gm/dL (6.0-8.0); TRIGLYCERIDES 91 mg/dl (<150)
[2025-03-11 18:40] LABS: VITAMIN D, 25-HYDROXY 25.8 ng/mL (30-100)
== END | disposition home or self-care (01) ==
LOC: LAB 17:58
PROVIDERS: ATTEND Family Medicine
DX: M79.89 Other specified soft tissue disorders (principal); M25.562 Pain in left knee; E78.00 Pure hypercholesterolemia, unspecified; K21.9 Gastro-esophageal reflux disease without esophagitis; R53.83 Other fatigue